=== PATIENT | female | born 1955 | race African-American/Black ===

== ENCOUNTER 2017-07-27 17:14 | Emergency (ER) | payer MEDICARE, OTHER ==
[~2017-07-27] VITALS: Ht 154.9 cm; Wt 81.6 kg
[2017-07-27 18:36] VITALS: BP 130/69
[2017-07-27] MEDS ORDERED: ONDANSETRON ODT 4 MG TAB PO ONE ×2 (19:25→19:30)
[2017-07-27] MEDS ORDERED: HYDROmorphone HCL 2 MG/ML VL IM ONE (20:30)
[2017-07-27] MEDS ORDERED: PROMETHAZINE HCL 25 MG/ML 1ML IM ONE (20:30)
== END 2017-07-27 20:45 | disposition home or self-care (01) ==
LOC: ER 17:18
DX: S16.1XXA Strain of muscle, fascia and tendon at neck level, initial encounter (principal); S39.012A Strain of muscle, fascia and tendon of lower back, initial encounter; S29.012A Strain of muscle and tendon of back wall of thorax, initial encounter; J40 Bronchitis, not specified as acute or chronic; J44.9 Chronic obstructive pulmonary disease, unspecified; R51 Headache; K21.9 Gastro-esophageal reflux disease without esophagitis; Z87.891 Personal history of nicotine dependence; V43.52XA Car driver injured in collision with other type car in traffic accident, initial encounter; Y93.89 Activity, other specified; Y92.488 Other paved roadways as the place of occurrence of the external cause; Y99.8 Other external cause status
CPT/HCPCS: 70450; 72040; 72070; 72100; 96372; 99284; J1170; J2550; Q0162

== ENCOUNTER 2018-01-08 19:18 | Emergency (ER) | payer MEDICARE, OTHER ==
[~2018-01-08] VITALS: Ht 154.9 cm; Wt 81.6 kg
[2018-01-08 20:07] VITALS: BP 149/74
== END 2018-01-08 23:03 | disposition home or self-care (01) ==
LOC: ER 19:18
DX: S30.0XXA Contusion of lower back and pelvis, initial encounter (principal); S80.01XA Contusion of right knee, initial encounter; J44.9 Chronic obstructive pulmonary disease, unspecified; K21.9 Gastro-esophageal reflux disease without esophagitis; Z88.6 Allergy status to analgesic agent; Z91.041 Radiographic dye allergy status; Z87.891 Personal history of nicotine dependence; W01.0XXA Fall on same level from slipping, tripping and stumbling without subsequent striking against object, initial encounter; Y93.89 Activity, other specified; Y92.89 Other specified places as the place of occurrence of the external cause; Y99.8 Other external cause status
CPT/HCPCS: 72220; 73562